=== PATIENT | male | born 1975 | race Caucasian/White ===

== ENCOUNTER 2016-12-08 21:18 | Emergency (ER) | payer SELFPAY ==
[2016-12-08] MEDS ORDERED: NACL 0.9% IR ONE (22:03)
--- NOTE | 2016-12-08 22:04 | Emergency Department Report ---
ED Male HPI - General Chief complaint: Urogenital-Male Stated complaint: BLOOD IN URINE Time Seen by Provider: 12/08/16 21:54 Source: patient, EMS (ems notes not available at time of chart dictation), RN notes reviewed Mode of arrival: Stretcher Limitations: No Limitations - History of Present Illness Initial comments: This is a 41-year-old male. He is previously unknown to me. He does not have a local primary care doctor. Patient reports seeing [place] [facility] in the past. Patient has a history of intermittent hematuria, and intermittent obstructive uropathy. The patient presents to the ER with EMS for inability to urinate which started at 8:00 PM. It is relieved with a Ivey catheter. No headache, neck pain, chest pain, shortness of breath, denies testicular pain, admits to mild discomfort with the placement of the Ivey catheter. The patient endorses mild dysuria over the past few days. There is no rectal pain. There is no sensation of rectal fullness. There is no dyschezia. There is no trauma. -: Gradual Consistency: constant Improves with: other (placement of Ivey catheter) Worsens with: none urinary retention, blood in urine - Related Data Home Medications Medication Instructions Recorded Confirmed Last Taken Ibuprofen/Diphenhydramine Cit 1 tab PO QHS PRN 12/08/16 12/08/16 12/07/16 [Motrin PM Caplet] 2100 Previous Rx's Medication Instructions Recorded Last Taken Type Nitrofurantoin [place]/M-Cryst 100 mg PO Q12HR #14 capsule 12/08/16 Unknown Rx [Macrobid CAP] Tamsulosin [Flomax] 0.4 mg PO QDAY #30 cap 12/08/16 Unknown Rx Allergies Allergy/AdvReac Type Severity Reaction Status Date / Time codeine AdvReac Mild Nausea Verified 12/08/16 21:41 ED Review of Systems ROS: Stated complaint: BLOOD IN URINE Other details as noted in HPI Constitutional: denies: fever Eyes: denies: vision change ENT: denies: epistaxis Respiratory: denies: cough Cardiovascular: denies: chest pain Gastrointestinal: abdominal pain Genitourinary: hematuria Musculoskeletal: as per HPI Skin: as per HPI Neurological: as per HPI Psychiatric: as per HPI ED Past Medical Hx - Past Medical History Previous Medical History?: Yes Additional medical history: hematuria, bladder infections, anuria associated with bleed and clots - Surgical History Past Surgical History?: No - Social History Smoking Status: Current Every Day Smoker Substance Use Type: None - Medications Home Medications: Home Medications Medication Instructions Recorded Confirmed Last Taken Type Ibuprofen/Diphenhydramine Cit 1 tab PO QHS PRN 12/08/16 12/08/16 12/07/16 History [Motrin PM Caplet] 2100 Nitrofurantoin [place]/M-Cryst 100 mg PO Q12HR #14 capsule 12/08/16 Unknown Rx [Macrobid CAP] Tamsulosin [Flomax] 0.4 mg PO QDAY #30 cap 12/08/16 Unknown Rx ED Physical Exam - General Limitations: No Limitations General appearance: alert, in no apparent distress - Head Head exam: Present: atraumatic, normocephalic - Eye Eye exam: Present: normal appearance, EOMI. Absent: nystagmus - ENT ENT exam: Present: normal exam, normal orophraynx, mucous membranes moist, normal external ear exam - Neck Neck exam: Present: normal inspection, full ROM. Absent: tenderness, meningismus - Respiratory Respiratory exam: Present: normal lung sounds bilaterally. Absent: respiratory distress, wheezes, rales, rhonchi, stridor, chest wall tenderness, accessory muscle use, decreased breath sounds, prolonged expiratory - Cardiovascular Cardiovascular Exam: Present: regular rate, normal rhythm, normal heart sounds. Absent: bradycardia, tachycardia, irregular rhythm, systolic murmur, diastolic murmur, rubs, gallop - GI/Abdominal GI/Abdominal exam: Present: soft, normal bowel sounds. Absent: distended, tenderness, guarding, rebound, rigid, pulsatile mass - Rectal Rectal exam: Present: deferred - exam: Present: normal inspection. Absent: testicular tenderness External exam: Present: normal external exam, other (there is no testicular tenderness. There is normal testicular lie. There is normal mesenteric reflex bilaterally) - Extremities Exam Extremities exam: Present: normal inspection, full ROM, normal capillary refill. Absent: tenderness, pedal edema, joint swelling, calf tenderness - Back Exam Back exam: Present: normal inspection, full ROM. Absent: tenderness, CVA tenderness (R), CVA tenderness (L), muscle spasm, paraspinal tenderness, vertebral tenderness - Neurological Exam Neurological exam: Present: alert, oriented X3, other (Extraocular movements intact. Tongue midline. No facial droop. Facial sensation intact to light touch in the V1, V2, V3 distribution bilaterally. 5 and 5 strength in 4 extremities.. Sensation is intact to light touch in 4 extremities.). Absent: motor sensory deficit - Psychiatric Psychiatric exam: Present: normal affect, normal mood - Skin Skin exam: Present: warm, dry, intact, normal color. Absent: rash ED Course Vital Signs 12/08/16 12/08/16 12/08/16 21:22 21:28 21:30 Temperature 98.2 F Pulse Rate 96 H 89 104 H Respiratory 16 16 14 Rate Blood Pressure 140/86 131/87 Blood Pressure 140/86 [Right] O2 Sat by Pulse 96 97 98 Oximetry 12/08/16 12/08/16 12/08/16 22:00 22:30 23:00 Temperature Pulse Rate 81 84 83 Respiratory 13 12 14 Rate Blood Pressure 107/62 117/73 102/53 Blood Pressure [Right] O2 Sat by Pulse 95 95 96 Oximetry 12/08/16 12/08/16 12/08/16 23:16 23:22 23:30 Temperature Pulse Rate 84 83 78 Respiratory 12 14 11 L Rate Blood Pressure 120/78 120/84 Blood Pressure 102/53 [Right] O2 Sat by Pulse 96 96 97 Oximetry 12/08/16 12/09/16 12/09/16 23:40 00:00 00:30 Temperature Pulse Rate 84 80 70 Respiratory 10 L 18 27 H Rate Blood Pressure 120/84 117/74 111/68 Blood Pressure [Right] O2 Sat by Pulse 97 95 95 Oximetry 12/09/16 12/09/16 12/09/16 01:00 01:21 01:30 Temperature Pulse Rate 69 87 Respiratory 23 18 16 Rate Blood Pressure 113/75 113/75 Blood Pressure [Right] O2 Sat by Pulse 95 96 Oximetry 12/09/16 12/09/16 12/09/16 01:43 02:00 02:30 Temperature Pulse Rate 74 72 Respiratory 20 14 14 Rate Blood Pressure 99/57 101/53 Blood Pressure [Right] O2 Sat by Pulse 94 94 Oximetry 12/09/16 12/09/16 12/09/16 03:00 03:30 04:00 Temperature Pulse Rate 70 75 76 Respiratory 13 11 L 22 Rate Blood Pressure 110/72 111/70 110/72 Blood Pressure [Right] O2 Sat by Pulse 95 96 95 Oximetry 12/09/16 04:30 Temperature Pulse Rate Respiratory Rate Blood Pressure 110/72 Blood Pressure [Right] O2 Sat by Pulse 100 Oximetry - Reevaluation(s) Reevaluation #1: 12/08/16 22:30 differential diagnosis: Urinary retention, urinary tract infection, obstructive uropathy, urinary malignancy Assessment and plan: 41-year-old male with hematuria, obstructive uropathy, now resolved, Ivey catheter draining bloody urine. Patient denies recent trips to foreign countries, exposure to blue analine dyes. Patient indicates that this happens to him on and off. Patient indicates that he had an unremarkable cystoscopy last year. We will check basic laboratory studies, irrigate the Ivey catheter with sterile saline, and observe. Reevaluation #2: 12/08/16 23:09 Ivey catheter flushed multiple times with sterile saline. Clarity of urine is improving. Urinalysis suggests urinary tract infection. Patient will be discharged with Flomax and Macrobid. Instructed to follow-up with [place] [facility]. Patient will be discharged with leg bag. Instructed to follow up for trial void. Reevaluation #3: 12/09/16 00:30 the patient does not want to be discharged. He is worried that he is still bleeding. He is not obstructed. I have instructed the patient that he does not require admission at this time. However, I did agree to discuss the patient's care with urology on-call as per the patient's request. Urology has been paged. I am waiting for them to call back. Reevaluation #4: 12/09/16 00:44 case is discussed with the urologist on-call, Dr. Wu. The patient's presentation, physical exam, laboratory studies were discussed with the specialist, and he agreed that the patient was suitable for discharge. This was communicated to the patient. Reevaluation #5: 12/09/16 00:53 patient indicates he is now obstructed. We will initiate continuous bladder irrigation. 12/09/16 03:42 Patient reassessed. Patient sleeping comfortably. Ivey catheter draining clear urine. Vital signs stable. Patient is suitable to be discharged at this time. Hematuria has resolved. Urinary obstruction has resolved. ED Medical Decision Making - Lab Data Result diagrams: 12/08/16 22:22 12/08/16 22:22 Vital Signs 12/08/16 21:28 Temperature 98.2 F Pulse Rate 89 Respiratory 16 Rate Blood Pressure 140/86 Blood Pressure 140/86 [Right] O2 Sat by Pulse 97 Oximetry Labs 12/08/16 21:30 Urine RBC (Auto) 9.0 Critical care attestation.: If time is entered above; I have spent that time in minutes in the direct care of this critically ill patient, excluding procedure time. ED Disposition Clinical Impression: Urinary retention Disposition: DISCHARGED TO HOME OR SELFCARE Is pt being admited?: No Does the pt Need Aspirin: No Condition: Stable Instructions: Urinary Retention in Men (ED) Additional Instructions: Laboratory studies suggested urinary tract infection. This is the most likely etiology of blood in the urine. Take the medications as directed. Keep the Ivey catheter in place. Follow up with a urology specialist within the next 5- 7 days for outpatient trial of void. Cultures was sent today, results will be available in the next 3-5 days. Have a primary care doctor or urology specialist contact the medical records department to obtain culture results. Not following up with urology specialist in a timely fashion may result in undiagnosed tumor/cancer/malignancy. Return to the ER right away with recurrent inability to urinate, fevers, chills , chest pain, shortness of breath, confusion, intractable nausea or vomiting. Prescriptions: Nitrofurantoin [place]/M-Cryst [Macrobid CAP] 100 mg PO Q12HR #14 capsule Tamsulosin [Flomax] 0.4 mg PO QDAY #30 cap Referrals: ADDY CHIANG MD [Primary Care Provider] - 3-5 Days [facility] [Provider Group] - 3-5 Days ADAN WU MD [Staff Physician] - 3-5 Days
[2016-12-08] MEDS ORDERED: NACL 0.9% 1,000 ML IR ONE (22:21)
[2016-12-08 22:29] LABS: Bacteria,Urine 4+ /HPF (Negative)
[2016-12-08 22:47] LABS: Bilirubin,Urine NEG (Negative); Blood,Urine MOD (Negative); Ketones,Urine NEG (Negative); Leukocyte Esterase,Urine NEG (Negative); Nitrite,Urine NEG (Negative); Urobilinogen,Urine < 2.0 mg/dL (<2.0)
[2016-12-08 22:49] LABS: Hematocrit 39.4 % (35.5-45.6); Hemoglobin 13.4 gm/dl (11.8-15.2); Mean Corpuscular HGB Conc 34 % (32-34); Mean Corpuscular Hemoglobin 31 pg (28-32); Mean Corpuscular Volume 90 fl (84-94); Platelet Count 285 K/mm3 (140-440); Red Blood Count 4.37 M/mm3 (3.65-5.03); Red Cell Distribution Width 13.1 % (13.2-15.2); White Blood Count 13.4 K/mm3 (4.5-11.0)
[2016-12-08 22:57] LABS: Anion Gap 19 mmol/L; Blood Urea Nitrogen 18 mg/dL (9-20); Calcium 8.6 mg/dL (8.4-10.2); Carbon Dioxide 23 mmol/L (22-30); Chloride 96.9 mmol/L (98-107); Creatine Kinase 78 units/L (55-170); Glucose 98 mg/dL (75-100); Potassium 3.8 mmol/L (3.6-5.0); Sodium 135 mmol/L (137-145)
[2016-12-09] MEDS ORDERED: NACL 0.9% IR SCH (01:00)
[2016-12-09] MEDS ORDERED: MORPHINE IV ONE (01:17)
[2016-12-09] MEDS ORDERED: ZOFRAN IV ONE (01:18)
[2016-12-09] MEDS ORDERED: DILAUDID IV ONE (01:38)
[2016-12-09 05:04] VITALS: BP 110/72
== END 2016-12-09 05:05 | disposition home or self-care (01) ==
LOC: ED 21:18
DX: R33.9 Retention of urine, unspecified (principal); F17.200 Nicotine dependence, unspecified, uncomplicated; Z88.6 Allergy status to analgesic agent
CPT/HCPCS: 36415; 51702; 80048; 81001; 82550; 83735; 85027; 87086; 96374; 96375; 99284; A4217; J1170; J2270; J2405